=== PATIENT | male | born 1935 | race Caucasian/White ===

== ENCOUNTER 2017-05-02 08:17 | Emergency (ER) | payer MEDICARE, OTHER ==
[~2017-05-02] VITALS: Ht 177.8 cm; Wt 72.7 kg
[~2017-05-02 08:17] MED LIST: AMOXICILLIN 50500 MG PO; COUMADIN 22.5 MG/TAB PO; COZAAR100 MG PO; DIGOXIN PO; HCTZ 25MG TAB25 MG PO; HCTZ 25MG25 MG PO; LANOXIN 0.120.125 MG PO; LIPITOR20 MG PO; NORVASC 5MG5 MG/TAB PO; PRILOSEC 20MG20 MG PO; TOPROL XL 25MG25 MG PO; TOPROL XL25 MG PO; ULTRAM 50MG TAB50 MG PO; ZANTAC 150150 MG PO; ZOCOR 40MG40 MG PO; ZOCOR40 MG PO
[2017-05-02 08:23] VITALS: BP 134/63; PULSE 86; TEMP 97.9
[2017-05-02] MEDS ORDERED: THE MEDICINE S200 M2 PO (08:40)
[2017-05-02] MEDS ORDERED: MIRALAX PA17 GM/Dose PO (08:42)
[2017-05-02] MEDS ORDERED: SURFAK 240240 MG/CAP PO (08:42)
[2017-05-02] MEDS ORDERED: DULCOLAX STOOL100 MG PO (08:42)
[2017-05-02 09:40] LABS: BASO # 0.1 (0.0-0.2); BASO % 0.7 % (0.0-2.0); EOS # 0.1 (0.0-0.7); EOS % 1.9 % (0-4.0); GRAN # 4.5 (1.4-6.5); GRAN % 65.8 % (42.2-75.2); HEMOGLOBIN 12.1 g/dl (13.5-18.0); LYMPH # 1.4 (1.2-3.4); MEAN CELL VOLUME 90 fl (80.0-100.0); MEAN CORPUSCULAR HEMOGLOBIN 30 pg (27.0-31.0); MEAN CORPUSCULAR HGB CONC 34 g/dl (33.0-37.0); MEAN PLATELET VOLUME 9.1 fl (7.4-10.4); MONO # 0.7 (0.1-0.6); MONO % 10.7 % (1.7-9.3); PLATELET COUNT 476 K/mm3 (130-400); RED BLOOD COUNT 3.99 M/mm3 (4.20-5.60); WHITE BLOOD COUNT 6.8 K/mm3 (4.8-10.8)
[2017-05-02 09:48] LABS: ADJUSTED CALCIUM 10.4 mg/dL (8.4-10.2); ALBUMIN 4.4 gm/dL (3.5-5.0); BILIRUBIN,TOTAL 0.6 mg/dL (0.0-1.0); CALCIUM 10.7 mg/dL (8.4-10.2); CREATININE, serum 0.86 mg/dL (0.66-1.25); POTASSIUM 4.7 mmol/L (3.4-5.0); TOTAL PROTEIN 7.3 gm/dL (6.4-8.2)
== END 2017-05-02 10:58 | disposition home or self-care (01) ==
LOC: COL.ER 08:17
PROVIDERS: Physician Assistant Medical
DX: K59.00 Constipation, unspecified (principal); E78.5 Hyperlipidemia, unspecified; Z79.01 Long term (current) use of anticoagulants; Z90.89 Acquired absence of other organs; Z98.890 Other specified postprocedural states

== ENCOUNTER 2017-08-12 09:00 | Outpatient (RCR) | payer MEDICARE, OTHER ==
[~2017-08-12 09:00] MED LIST changes: +DULCOLAX STOOL100 MG PO; +MIRALAX PA17 GM/Dose PO; +SURFAK 240240 MG/CAP PO; +THE MEDICINE S200 M2 PO
== END 2017-08-31 09:12 | disposition home or self-care (01) ==
LOC: WSPT 09:00
DX: M17.11 Unilateral primary osteoarthritis, right knee (principal); Z96.651 Presence of right artificial knee joint
CPT/HCPCS: G8978-GP; G8979-GP; G8980-GP

== ENCOUNTER 2019-12-04 06:26 | Emergency (ER) | payer MEDICARE, OTHER ==
[~2019-12-04] VITALS: Ht 177.8 cm; Wt 74.1 kg
[~2019-12-04 06:26] MED LIST changes: -COUMADIN 22.5 MG/TAB PO; +COUMADIN 3MG3 MG/TAB PO; +COZAAR 50MG50 MG/TAB PO; -COZAAR100 MG PO; -LANOXIN 0.120.125 MG PO; +LANOXIN 0.25M0.25 MG PO; +NORVASC 10MG10 MG PO; -NORVASC 5MG5 MG/TAB PO
[2019-12-04 06:32] VITALS: TEMP 97.6
[2019-12-04 06:58] LABS: BASO # 0.1 (0.0-0.2); EOS # 0.4 (0.0-0.7); GRAN % 66.2 % (42.2-75.2); HEMATOCRIT 44.8 % (42.0-52.0); HEMOGLOBIN 15.1 g/dl (13.5-18.0); LYMPH # 1.8 (1.2-3.4); LYMPH % 19.4 % (20.0-51.0); MEAN CELL VOLUME 91 fl (80.0-100.0); MEAN CORPUSCULAR HEMOGLOBIN 31 pg (27.0-31.0); MEAN CORPUSCULAR HGB CONC 34 g/dl (33.0-37.0); MEAN PLATELET VOLUME 10.4 fl (7.4-10.4); MONO # 0.8 (0.1-0.6); MONO % 8.6 % (1.7-9.3); PLATELET COUNT 328 K/mm3 (130-400); RED BLOOD COUNT 4.95 M/mm3 (4.20-5.60)
[2019-12-04 07:03] LABS: PROTHROMBIN TIME 22.9 SECONDS (9.7-12.8)
[2019-12-04 07:04] LABS: ALANINE AMINOTRANSFERASE 31 U/L (4-49); ALBUMIN 4.5 gm/dL (3.5-5.0); ALKALINE PHOSPHATASE 80 U/L (50-136); ANION GAP 11 mmol/L (7-16); AST,SGOT 42 U/L (15-37); BILIRUBIN,TOTAL 0.7 mg/dL (0.0-1.0); BLOOD UREA NITROGEN 13 mg/dL (9-20); CALCIUM 9.8 mg/dL (8.4-10.2); CARBON DIOXIDE 24 mmol/L (22-30); CHLORIDE 96 mmol/L (98-107); CREATININE, serum 0.71 (0.66-1.25); GLUCOSE 157 mg/dL (74-106); MAGNESIUM 1.8 mg/dL (1.6-2.3); POTASSIUM 4.4 mmol/L (3.4-5.0); SODIUM 131 mmol/L (137-145); TOTAL PROTEIN 7.6 gm/dL (6.4-8.2)
[2019-12-04 07:05] LABS: PARTIAL THROMBOPLASTIN TIME 46.3 SECONDS (26.0-37.0)
[2019-12-04 07:16] LABS: TROPONIN-I < 0.012 ng/mL (0.000-0.035)
[2019-12-04 07:16] LABS: COLLECTION METHOD CLEAN CATCH
[2019-12-04 07:23] LABS: MUCOUS Present /lpf; PH 7 (5-8); SQUAMOUS EPITHELIAL None Seen /hpf; URINE APPEARANCE Clear; URINE BACTERIA None Seen /hpf; URINE BILIRUBIN Negative (NEGATIVE); URINE BLOOD Negative (NEGATIVE); URINE COLOR Straw; URINE GLUCOSE Negative (NEGATIVE); URINE KETONE Negative (NEGATIVE); URINE LEUKOCYTE ESTERASE Negative (NEGATIVE); URINE NITRATE Negative (NEGATIVE); URINE PROTEIN(semi-quant) Negative (NEGATIVE); URINE RBC 0-2 /hpf; URINE UROBILINOGEN Negative (NEGATIVE)
[2019-12-04] MEDS ORDERED: BIOTIN10000 MC1 PO (07:24)
[2019-12-04] MEDS ORDERED: CLARITIN 1010 MG/TAB PO (07:25)
[2019-12-04] MEDS ORDERED: VITAMIN D250 MCG PO (07:26)
[2019-12-04 08:30] VITALS: BP 158/69; PULSE 62
== END 2019-12-04 08:43 | disposition home or self-care (01) ==
LOC: COL.ER 06:26
PROVIDERS: Emergency Medicine
DX: R42 Dizziness and giddiness (principal); I48.91 Unspecified atrial fibrillation; I10 Essential (primary) hypertension; E78.5 Hyperlipidemia, unspecified; Z96.611 Presence of right artificial shoulder joint; Z87.891 Personal history of nicotine dependence; Z79.899 Other long term (current) drug therapy

== ENCOUNTER 2020-12-04 13:10 | Emergency (ER) | payer MEDICARE, OTHER ==
[~2020-12-04] VITALS: Ht 177.8 cm; Wt 73.6 kg
[~2020-12-04 13:10] MED LIST changes: +BIOTIN10000 MC1 PO; +CLARITIN 1010 MG/TAB PO; +VITAMIN D250 MCG PO
[2020-12-04 13:21] VITALS: TEMP 97.8
[2020-12-04 13:56] LABS: BASO # 0.1 (0.0-0.2); BASO % 0.7 % (0.0-2.0); EOS # 0.2 (0.0-0.7); EOS % 2.2 % (0-4.0); GRAN # 7.6 (1.4-6.5); GRAN % 72.8 % (42.2-75.2); HEMATOCRIT 37.9 % (42.0-52.0); HEMOGLOBIN 12.8 g/dl (13.5-18.0); LYMPH # 1.6 (1.2-3.4); LYMPH % 14.8 % (20.0-51.0); MEAN CELL VOLUME 91 fl (80.0-100.0); MEAN CORPUSCULAR HEMOGLOBIN 31 pg (27.0-31.0); MEAN CORPUSCULAR HGB CONC 34 g/dl (33.0-37.0); MEAN PLATELET VOLUME 10.6 fl (7.4-10.4); MONO # 0.9 (0.1-0.6); MONO % 8.5 % (1.7-9.3); PLATELET COUNT 329 K/mm3 (130-400); RED BLOOD COUNT 4.17 M/mm3 (4.20-5.60)
[2020-12-04 14:05] LABS: INR 1.2 (0.8-3.0); PROTHROMBIN TIME 13.4 SECONDS (9.7-12.8)
[2020-12-04 14:11] LABS: ALBUMIN 4.3 gm/dL (3.5-5.0); BILIRUBIN,TOTAL 0.7 mg/dL (0.0-1.0); CALCIUM 9.7 mg/dL (8.4-10.2); CREATININE, serum 0.74 (0.66-1.25); POTASSIUM 4.7 mmol/L (3.4-5.0); TOTAL PROTEIN 7.3 gm/dL (6.4-8.2)
[2020-12-04 14:21] LABS: TROPONIN-I 0.015 ng/mL (0.000-0.035)
[2020-12-04 15:27] VITALS: BP 160/85; PULSE 82
== END 2020-12-04 15:34 | disposition home or self-care (01) ==
LOC: COL.ER 13:10
PROVIDERS: Emergency Medicine
DX: S01.01XA Laceration without foreign body of scalp, initial encounter (principal); I48.91 Unspecified atrial fibrillation; E78.5 Hyperlipidemia, unspecified; I10 Essential (primary) hypertension; F17.290 Nicotine dependence, other tobacco product, uncomplicated; Z79.01 Long term (current) use of anticoagulants; Z79.899 Other long term (current) drug therapy; W19.XXXA Unspecified fall, initial encounter; W22.8XXA Striking against or struck by other objects, initial encounter; Y92.009 Unspecified place in unspecified non-institutional (private) residence as the place of occurrence of the external cause

== ENCOUNTER 2021-03-07 12:17 | Emergency (ER) | payer MEDICARE, OTHER ==
[~2021-03-07] VITALS: Ht 177.8 cm; Wt 90.9 kg
[2021-03-07 12:52] LABS: BASO # 0.1 (0.0-0.2); BASO % 0.5 % (0.0-2.0); EOS # 0.1 (0.0-0.7); EOS % 0.4 % (0-4.0); GRAN # 10.9 (1.4-6.5); GRAN % 80.7 % (42.2-75.2); HEMATOCRIT 37.1 % (42.0-52.0); LYMPH % 7.7 % (20.0-51.0); MEAN CELL VOLUME 87 fl (80.0-100.0); MEAN CORPUSCULAR HEMOGLOBIN 31 pg (27.0-31.0); MEAN CORPUSCULAR HGB CONC 35 g/dl (33.0-37.0); MEAN PLATELET VOLUME 8.8 fl (7.4-10.4); MONO # 1.4 (0.1-0.6); MONO % 10.2 % (1.7-9.3); PLATELET COUNT 477 K/mm3 (130-400); RED BLOOD COUNT 4.25 M/mm3 (4.20-5.60); REDCELL DISTRIBUTION WIDTH-CV 12.2 % (11.5-14.5)
[2021-03-07 12:57] LABS: INR 1.1 (0.8-3.0); PROTHROMBIN TIME 12.6 SECONDS (9.7-12.8)
[2021-03-07 12:59] LABS: COLLECTION METHOD CLEAN CATCH
[2021-03-07 13:06] LABS: MUCOUS Present /lpf; PH 6 (5-8); SQUAMOUS EPITHELIAL None Seen /hpf; URINE APPEARANCE Clear; URINE BACTERIA None Seen /hpf; URINE BILIRUBIN Negative (NEGATIVE); URINE BLOOD Negative (NEGATIVE); URINE COLOR Yellow; URINE GLUCOSE Negative (NEGATIVE); URINE KETONE 1+ (NEGATIVE); URINE LEUKOCYTE ESTERASE Negative (NEGATIVE); URINE NITRATE Negative (NEGATIVE); URINE PROTEIN(semi-quant) 1+ (NEGATIVE); URINE RBC 0-2 /hpf; URINE UROBILINOGEN Negative (NEGATIVE)
[2021-03-07 13:08] LABS: ALBUMIN 3.6 gm/dL (3.4-4.8); BILIRUBIN,TOTAL 1.1 mg/dL (0.2-1.2); CALCIUM 10.1 mg/dL (8.4-10.2); CREATININE, serum 0.78 mg/dL (0.72-1.25); POTASSIUM 3.9 mmol/L (3.5-4.5)
[2021-03-07 13:18] LABS: TROPONIN-I 0.036 ng/mL (0.00-0.033)
[2021-03-07 14:32] VITALS: BP 135/87; PULSE 68
== END 2021-03-07 14:32 | disposition short-term general hospital (02) ==
LOC: COL.ER 12:17
PROVIDERS: Emergency Medicine
DX: I62.00 Nontraumatic subdural hemorrhage, unspecified (principal); I48.91 Unspecified atrial fibrillation; R74.8 Abnormal levels of other serum enzymes; D72.829 Elevated white blood cell count, unspecified; E87.1 Hypo-osmolality and hyponatremia; Z79.01 Long term (current) use of anticoagulants
CPT/HCPCS: J1953; J7030; J7050; Q9967